=== PATIENT | male | born 2000 | race Caucasian/White ===

== ENCOUNTER 2020-04-22 16:18 | Emergency (ER) | payer OTHER ==
[~2020-04-22] VITALS: Ht 188 cm; Wt 142.9 kg
[2020-04-22] MEDS ORDERED: IBUPROFEN 800800 M1 PO (17:28)
[2020-04-22] MEDS ORDERED: ZANAFLEX4 MG PO (17:28)
[2020-04-22 18:14] VITALS: BP 135/85
== END 2020-04-22 18:14 | disposition home or self-care (01) ==
LOC: M.ERS 16:18
DX: S39.012A Strain of muscle, fascia and tendon of lower back, initial encounter (principal); S09.90XA Unspecified injury of head, initial encounter; M25.571 Pain in right ankle and joints of right foot; E66.9 Obesity, unspecified; V49.88XA Car occupant (driver) (passenger) injured in other specified transport accidents, initial encounter; Y93.89 Activity, other specified; Y92.413 State road as the place of occurrence of the external cause; Y99.9 Unspecified external cause status